=== PATIENT | male | born 1960 | race Caucasian/White ===

== ENCOUNTER 2019-03-25 12:36 | Emergency (ER) | payer MEDICAID, OTHER ==
--- NOTE | 2019-03-25 13:03 | RAD ---
EXAM: 3 views of the lumbosacral spine HISTORY: Low back pain COMPARISON: None FINDINGS: 3 views of the lumbosacral spine shows slight wedging of the L1 vertebral body which may be congenital. No obvious acute fracture or subluxation is seen. Mild degenerative changes are seen in the upper lumbar spine. Vascular calcifications are seen in the aorta. The sacroiliac joints are unremarkable. IMPRESSION: Mild degenerative changes of the lumbar spine without acute osseous abnormality.
== END 2019-03-25 13:25 | disposition home or self-care (01) ==
LOC: MADERS 12:36
DX: S30.0XXA Contusion of lower back and pelvis, initial encounter (principal); Z86.73 Personal history of transient ischemic attack (TIA), and cerebral infarction without residual deficits; I25.2 Old myocardial infarction; I10 Essential (primary) hypertension; F41.9 Anxiety disorder, unspecified; F32.9 Major depressive disorder, single episode, unspecified; F17.210 Nicotine dependence, cigarettes, uncomplicated; Z79.899 Other long term (current) drug therapy; W06.XXXA Fall from bed, initial encounter
CPT/HCPCS: 72100

== ENCOUNTER 2019-04-12 10:31 | Emergency (ER) | payer MEDICAID, OTHER ==
[~2019-04-12 10:31] MED LIST: Iopamidol 370 76% 100 ML VIAL ONE; Sodium Chloride 0.9% 1,000 ML BAG ONE
[2019-04-12 11:27] LABS: #Basophils 0.1 thou/uL (0.0-0.2); #Eosinphils 0.2 thou/uL (0.0-0.7); #Lymphocytes 2.8 thou/uL (1.20-3.40); #Monocytes 0.6 thou/uL (0.11-0.59); #Neutrophils 4.2 thou/uL (1.40-6.50); %Basophils 0.8 % (0.0-1.0); %Eosinophils 2.1 % (0.0-10.0); %Lymphocytes 35.6 % (21.0-51.0); %Monocytes 7.3 % (0.0-10.0); %Neutrophils 54.1 % (42.0-75.0); Hemoglobin 13.4 g/dL (14.0-18.0); Mean Corpuscular HGB CONC 32.8 g/dL (32.0-36.0); Mean Corpuscular Hemoglobin 27.4 pg (27.0-31.0); Mean Corpuscular Volume 83.6 fL (78.0-98.0); Mean Platelet Volume 6.6 fL (7.4-10.4); Platelet Count 149 thou/uL (130-400); RBC Distribution Width 13.7 % (11.5-14.5); Red Blood Cell (RBC) Count 4.87 mill/uL (4.70-6.10); White Blood Cell (WBC) Count 7.8 thou/uL (4.8-10.8)
--- NOTE | 2019-04-12 11:27 | RAD ---
Exam: 1 view abdomen HISTORY: Pain. FINDINGS: Markedly distended loops of colon are suspected. Further interrogation with abdomen CT util izing oral and IV contrast recommended. Copious amount fecal material in the sigmoid colon and rectum. Stent along the expected course of the right common iliac artery is noted IMPRESSION: Findings worrisome for constipation and obstruction. CT with oral and IV contrast is ranjan mmended.
[2019-04-12 11:42] LABS: ALT (SGPT) 27 U/L (8-55); AST (SGOT) 37 U/L (5-34); Albumin 3.7 g/dL (3.5-5.0); Alkaline Phosphatase 91 U/L (40-150); Anion Gap 13 mmol/L (10-20); BUN (Urea Nitrogen) 10 mg/dL (8.4-25.7); Bilirubin, Total 0.7 mg/dL (0.2-1.2); Calc. Creatinine Clearance 0 mL/min (70-130); Calcium 8.9 mg/dL (7.8-10.44); Carbon Dioxide 25 mmol/L (22-29); Chloride 106 mmol/L (98-107); Estimated GFR-MDRD Greater than 90; Globulin 3.4 g/dL (2.4-3.5); Glucose 93 mg/dL (70-105); Potassium 3.9 mmol/L (3.5-5.1); Protein, Total 7.1 g/dL (6.0-8.3); Sodium 140 mmol/L (136-145)
--- NOTE | 2019-04-12 13:49 | CT ---
EXAM: CT ABDOMEN AND PELVIS HISTORY: Abdominal hernias. Eval for obstruction. COMPARISON: 02/19/2019 Procedure: Multiple contiguous axial images were obtained and a CT of the abdomen and pelvis with IV contrast. C oronal reformats were performed. FINDINGS: Lower Chest: Chronic changes. Vessels: Normal caliber aorta. Atherosclerosis is noted Heart: Normal heart size. There are coronary artery calcifications. Abdomen: Portal vein:Patent Gallbladder: Surgically absent. Stable intrahepatic and extrahepatic pneumobilia Liver: within normal limits. Pancreas: within normal limits. Spleen: within normal limits. Adrenals: within normal limits. Kidneys: within normal limits. Peritoneum: No ascites or free air, no fluid collection. Bowel: Limited evaluation of the alimentary canal due to incomplete oral contrast opacification. Mult iple normal caliber small bowel loops are identified. Ileocecal junction is unremarkable. Normal caliber appendix. There is scattered fecal material throughout the colon. There is bowel wall thicken ing with pericolonic fat stranding along the distal sigmoid colon and rectum. Correlate for stercoral colitis. There is dilatation in the nondependent portion of the distal descending colon and sigmoid colon which appears to be at the level of a ventral abdominal wall hernia. There does not appear to be any evidence of fat stranding or bowel wall thickening. There is distention which is of uncertain significance and may in part be due to copious amount of air in the nondependent portion. Proximal to this segment of colon, the colon is relatively decompressed. Findings are similar to the previous examination though the degree of distention is somewhat increased. Mesentery and Retroperitoneum: No enlarged mesenteric or retroperitoneal lymph nodes. Abdominal Wall: Ventral abdominal wall hernia containing segment of colon as described above. There i s also evidence of small bowel extending through the defect without associated small bowel obstruction. Pelvis: Reproductive Organs: No pelvic masses. Pelvis: within normal limits. Bladder: within normal limits. Bones: within normal limits. IMPRESSION: 1. Copious amount of fecal material in the distal sigmoid colon and rectum. There is pericolonic fat stranding and stranding of the presacral fat. The possibility of stercoral colitis cannot be excluded. 2. Ventral abdominal wall hernia containing segments of small bowel and colon. There is no evidence o f small bowel incarceration or small bowel obstruction. There is gaseous distention of the colon at the level of the hernia defect. However, there does not appear to be bowel wall thickening or pericol onic fat stranding. Gaseous distention may be secondary to a large amount of air in the alimentary canal that is in the nondependent portion of the colon. 3. Results of study discussed with Dr. Avalos 04/12/2019 at 1:45 PM Code CR
== END 2019-04-12 14:05 | disposition home or self-care (01) ==
LOC: MADERS 10:31
DX: K59.00 Constipation, unspecified (principal); R14.1 Gas pain; I10 Essential (primary) hypertension; I25.2 Old myocardial infarction; F41.9 Anxiety disorder, unspecified; F32.9 Major depressive disorder, single episode, unspecified; F17.210 Nicotine dependence, cigarettes, uncomplicated; Z79.899 Other long term (current) drug therapy; Z86.73 Personal history of transient ischemic attack (TIA), and cerebral infarction without residual deficits; Z86.718 Personal history of other venous thrombosis and embolism
CPT/HCPCS: 36415; 74018; 74177; 80053; 83605; 85025; 96360; 96361; J7050; Q9967